=== PATIENT | female | born 1985 | race American Indian/Alaskan Native ===

== ENCOUNTER 2018-10-17 07:08 | Day surgery (SDC) | payer OTHER, MEDICAID ==
[~2018-10-17 07:08] MED LIST: ANCEF/STERILE WATER 2 GM/20 ML 2 GM/20 ML SYRINGE IV NR; NACL BACTERIOSTATIC INFILTRATI ONE
[2018-10-17] MEDS ORDERED: MARCAINE 0.5% INFILTRATI ONE (07:18)
[2018-10-17] MEDS ORDERED: XYLOCAINE 1% 20 mL ONE ×2 (07:18→08:06)
[2018-10-17] MEDS ORDERED: ZEMURON IV ONE (07:21)
[2018-10-17] MEDS ORDERED: SUBLIMAZE ONE ×2 (07:21→08:06)
[2018-10-17] MEDS ORDERED: QUELICIN ONE (07:21)
[2018-10-17] MEDS ORDERED: ZOFRAN ONE (07:21)
[2018-10-17] MEDS ORDERED: DIPRIVAN 10 MG/ML IV ONE (07:22)
[2018-10-17] MEDS ORDERED: NEURONTIN ONE (07:50)
[2018-10-17] MEDS ORDERED: LACTATED RINGERS 1,000 ML IV SCH (08:00)
[2018-10-17] MEDS ORDERED: NEURONTIN PO NR (08:00)
--- NOTE | 2018-10-17 08:00 | Anesthesia Day of Surgery ---
Anesthesia Day of Surgery - Day of Surgery Patient Examined: Yes Patient H&P Reviewed: Yes Patient is NPO: Yes Beta Blockers: No
--- NOTE | 2018-10-17 08:00 | Anesthesia Consultation ---
Anesthesia Consult and Med Hx Date of service: 10/17/18 - Airway Anesthetic Teeth Evaluation: Good ROM Head & Neck: Adequate Mental/Hyoid Distance: Adequate Mallampati Class: Class II Intubation Access Assessment: Probably Good - Pulmonary Exam CTA: Yes - Cardiac Exam Cardiac Exam: No Murmur - Pre-Operative Health Status ASA Pre-Surgery Classification: ASA2 Proposed Anesthetic Plan: General - Pulmonary Hx Smoking: Yes (STOPPED X 3 YRS) Hx Respiratory Symptoms: No SOB: No Hx Sleep Apnea: Yes (DX SLEEP APNEA , NO CPAP USE.) - Cardiovascular System Hx Hypertension: No Hx Coronary Artery Disease: No Hx Heart Attack/AMI: No - Central Nervous System Hx Seizures: No CVA: No Hx Psychiatric Problems: No - Gastrointestinal Hx Gastroesophageal Reflux Disease: Yes (mild, controlled) - Endocrine Hx Renal Disease: No Hx End Stage Renal Disease: No Hx Insulin Dependent Diabetes: No Hx Non-Insulin Dependent Diabetes: No Hx Hypothyroidism: No - Hematic Hx Anemia: Yes Hx Sickle Cell Disease: No - Other Systems Hx Alcohol Use: Yes (occas) Hx Substance Use: Yes (OCC MARIJUANA) Hx Cancer: No
[2018-10-17] MEDS ORDERED: VERSED ONE ×2 (08:05→11:04)
[2018-10-17] MEDS ORDERED: MARCAINE-EPI 0.5%-1:200,000 INFILTRATI ONE (08:07)
[2018-10-17] MEDS ORDERED: WATER FOR IRRIG STERILE IR ONE (09:51)
[2018-10-17] MEDS ORDERED: NACL 0.9% IR ONE (09:51)
--- NOTE | 2018-10-17 10:50 | Short Stay Summary ---
Short Stay Documentation Date of service: 10/17/18 - History Principal diagnosis: umbilical hernia H&P: obtained from office - Allergies and Medications Current Medications: Allergies adhesive Adverse Reaction (Verified 10/11/18 15:25) Rash , ITCHING Home Medications Medication Instructions Recorded Confirmed Last Taken Type No Known Home Medications [No 05/14/18 10/11/18 Unknown History Reported Home Medications] Active Medications Celecoxib (Celebrex) 200 mg PO PREOP NR Stop: 10/17/18 12:00 Last Admin: 10/17/18 08:00 Dose: 200 mg Documented by: Lactated Ringer's (Lactated Ringers) 1,000 mls @ 100 mls/hr IV DIRECT SERVANDO Last Admin: 10/17/18 08:00 Dose: 100 mls/hr Documented by: - Brief post op/procedure progress note Date of procedure: 10/17/18 Pre-op diagnosis: umbilical hernia Post-op diagnosis: same Procedure: robotic assisted umbilical hernia repair with mesh Anesthesia: GETA, other (ENMA block) Findings: 1.5 cm hernia defect with incarcerated omentum and preperitoneal fat Surgeon: ALFA MARQUEZ Hardening Machine Operator Helper: MADELIN CLARKE Estimated blood loss: minimal Pathology: none Condition: stable - Hospital course Hospital course: Pt observed in PACU and discharged to home in stable condition when criteria met - Disposition Condition at discharge: Good Disposition: DC-01 TO HOME OR SELFCARE Short Stay Discharge Plan Activity: other Diet: regular Wound: open to air Additional Instructions: SEE PRINTED DISCHARGE INSTRUCTIONS Follow up with: ROB QUEEN MD [Primary Care Provider] - 7 Days ALFA MARQUEZ DO [Staff Physician] - 14 Days Prescriptions: Ibuprofen [Motrin 800 MG tab] 800 mg PO Q8HR #30 tablet oxyCODONE /ACETAMINOPHEN [Percocet 5/325] 1 tab PO Q4HR PRN #20 tab PRN Reason: pain, severe
[2018-10-17] MEDS ORDERED: NEO SYNEPHRINE/NS Syringe(OR USE) IV ONE (10:57)
[2018-10-17] MEDS ORDERED: DILAUDID ONE (11:06)
[2018-10-17] MEDS ORDERED: PERCOCET 5/325 PO PRN (11:39)
[2018-10-17 12:21] VITALS: BP 132/58
--- NOTE | 2018-10-19 16:34 | Operative Report ---
PREOPERATIVE DIAGNOSIS: Umbilical hernia. POSTOPERATIVE DIAGNOSIS: Umbilical hernia. PROCEDURE: Robotic-assisted umbilical hernia repair with mesh. ANESTHESIA: General endotracheal anesthesia, TAP block. FINDINGS: A 1.5 cm hernia defect with incarcerated omentum and preperitoneal fat. SURGEON: Clary Corbett DO. SUPERVISOR LABOR GANG: Opal Taylor MD ESTIMATED BLOOD LOSS: Minimal. PATHOLOGY: None. CONDITION DISPOSITION: The patient is stable to PACU. HISTORY OF PRESENT ILLNESS AND INDICATION: The patient is a 32-year-old female who presented to the clinic with complaints of a bulge at her umbilicus. She complained of pain in this area and she was found to have an umbilical hernia. The umbilical hernia was partially reducible and contained fat. The repair was recommended. All risks, benefits and alternatives to surgery were discussed with the patient including robotic versus open repair. All questions were answered and consent obtained. PROCEDURE IN DETAIL: The patient was identified in the preoperative area and taken back to the operating room and placed on the operating table in supine position. After anesthesia was induced, a Azul catheter was sterilely placed by circulating nurse. The abdomen was prepped and draped in the usual sterile fashion. A timeout was performed. A carina incision was made in the left upper quadrant at Green's point. Through this, a Veress needle was inserted. The Veress needle positioning was confirmed using a saline drop test. The abdomen was insufflated to 15 mmHg. An incision was made in the right upper quadrant through which a 5 mm Optiview trocar was then inserted. The abdomen was inspected and there was no underlying injury to any of the abdominal structures and the Veress needle was identified and removed. An additional 12 mm balloon trocar was placed in the right lateral abdomen and an 8 mm robotic trocar in the right lower abdomen. The 5 mm right upper quadrant trocar was replaced with an 8 mm robotic trocar under direct visualization. The hernia was visualized and contained omentum. The robot was then docked with a fenestrated bipolar grasper placed in arm #2 and a monopolar scissor in arm #1. The surgeon was then moved to the console. The omentum was removed from the hernia and then I proceeded to create a preperitoneal flap. The peritoneum was scored to the right of the hernia defect and a preperitoneal flap was created using electrocautery in an avascular plane. The peritoneum was carefully from the posterior fascia on either side of the hernia and then the hernia was reduced. There was a large amount of preperitoneal fat contained in the hernia, which was carefully reduced. The hernia sac was also reduced. The hernia defect measured 1.5 cm. I carried the flap towards the left side in order to accommodate mesh placement. Once this was done, the pocket was checked for hemostasis, which was carefully ensured. The hernia defect was then closed using 0 V-Loc suture in a running fashion. An 8 cm round, flat Bard mesh was then chosen to repair the hernia. This was placed into the abdomen along with additional suture material. It was positioned at the center of the hernia defect and affixed in 4 quadrants using 2-0 Vicryl interrupted sutures. There was adequate coverage of the hernia defect with the appropriate overlap. The peritoneum was then reapproximated using 3-0 V-Loc continuous suture until all of the mesh was completely covered. No mesh was exposed to the abdominal organs. The robot was then undocked and the surgeon scrubbed back in. The remainder of the procedure was performed laparoscopically. The suture and sharps were removed from the abdomen under direct visualization. The 12 mm port was removed and the fascia closed with an interrupted 0 Vicryl suture using Zay-Lydia device. The abdomen was then desufflated and the remaining ports were removed. The skin was closed with 4-0 Monocryl subcuticular stitches and skin glue. A 4 x 4 gauze was placed in the umbilicus and covered with a Tegaderm dressing. At the end of the case, all sponge, instrument, sharp counts were correct x 2. The Azul catheter was removed. The patient was awoken from anesthesia and extubated. She was taken to the PACU in stable condition. JOB# [id number] JAMAL/BENJAMIN JENSEN
== END 2018-10-17 07:09 | disposition home or self-care (01) ==
LOC: OR 07:08
PROVIDERS: ATTEND Surgery
DX: K42.0 Umbilical hernia with obstruction, without gangrene (principal); G47.30 Sleep apnea, unspecified; K21.9 Gastro-esophageal reflux disease without esophagitis; Z79.899 Other long term (current) drug therapy; Z87.891 Personal history of nicotine dependence; Z98.51 Tubal ligation status; Z87.440 Personal history of urinary (tract) infections; Z72.89 Other problems related to lifestyle; Z98.890 Other specified postprocedural states; Z86.2 Personal history of diseases of the blood and blood-forming organs and certain disorders involving the immune mechanism; Z88.8 Allergy status to other drugs, medicaments and biological substances
CPT/HCPCS: 49653; 64488; 81025; C1781; J0330; J0690; J1170; J2250; J2370; J2405; J2704; J3010; J7120; S2900; 64450

== ENCOUNTER 2018-11-26 06:02 | Day surgery (SDC) | payer MEDICAID ==
[2018-11-26] MEDS ORDERED: LACTATED RINGERS 1,000 ML IV SCH (07:00)
[2018-11-26] MEDS ORDERED: ZOFRAN IV PRN (07:15)
[2018-11-26] MEDS ORDERED: SUBLIMAZE IV PRN (07:15)
--- NOTE | 2018-11-26 07:16 | Anesthesia Day of Surgery ---
Anesthesia Day of Surgery - Day of Surgery Patient Examined: Yes Patient H&P Reviewed: Yes Patient is NPO: Yes
--- NOTE | 2018-11-26 07:19 | Anesthesia Consultation ---
Anesthesia Consult and Med Hx Date of service: 11/26/18 - Airway Anesthetic Teeth Evaluation: Good ROM Head & Neck: Adequate Mental/Hyoid Distance: Adequate Mallampati Class: Class II Intubation Access Assessment: Probably Good - Pre-Operative Health Status ASA Pre-Surgery Classification: ASA1 Proposed Anesthetic Plan: General, MAC (MAC; GA if needed) - Pulmonary Hx Smoking: Yes (STOPPED X 3 YRS) Hx Respiratory Symptoms: No SOB: No Hx Sleep Apnea: No - Cardiovascular System Hx Hypertension: No Hx Coronary Artery Disease: No Hx Heart Attack/AMI: No - Central Nervous System Hx Seizures: No CVA: No Hx Psychiatric Problems: No - Gastrointestinal Hx Gastroesophageal Reflux Disease: Yes (mild, controlled) - Endocrine Hx Renal Disease: No Hx End Stage Renal Disease: No Hx Insulin Dependent Diabetes: No Hx Non-Insulin Dependent Diabetes: No Hx Hypothyroidism: No - Hematic Hx Anemia: Yes Hx Sickle Cell Disease: No - Other Systems Hx Alcohol Use: Yes (occas) Hx Substance Use: Yes (OCC MARIJUANA) Hx Cancer: No
[2018-11-26] MEDS ORDERED: XYLOCAINE 1% 20 mL ONE (07:23)
[2018-11-26] MEDS ORDERED: MARCAINE 0.25% INFILTRATI ONE ×2 (07:23→07:57)
[2018-11-26] MEDS ORDERED: ANCEF/STERILE WATER 2 GM/20 ML 2 GM/20 ML SYRINGE IV SCH (07:30)
[2018-11-26] MEDS ORDERED: VERSED ONE (07:35)
[2018-11-26] MEDS ORDERED: SUBLIMAZE ONE (07:38)
[2018-11-26] MEDS ORDERED: DIPRIVAN 10 MG/ML IV ONE ×3 (07:38→08:31)
[2018-11-26] MEDS ORDERED: XYLOCAINE MPF 2% ONE (07:38)
[2018-11-26] MEDS ORDERED: NACL 0.9% IR ONE (07:57)
[2018-11-26] MEDS ORDERED: XYLOCAINE 1% 20 mL INFILTRATI ONE (07:57)
[2018-11-26] MEDS ORDERED: ZOFRAN ONE (08:00)
--- NOTE | 2018-11-26 08:42 | Short Stay Summary ---
Short Stay Documentation Date of service: 11/26/18 - History Principal diagnosis: chest wall cyst H&P: obtained from office - Allergies and Medications Current Medications: Allergies adhesive Allergy (Verified 11/25/18 11:45) Rash , ITCHING Home Medications Medication Instructions Recorded Confirmed Last Taken Type Ibuprofen [Motrin 800 MG tab] 800 mg PO Q8HR #30 tablet 10/17/18 11/26/18 11/12/18 15:00 Rx oxyCODONE /ACETAMINOPHEN [Percocet 1 tab PO Q4HR PRN #20 tab 10/17/18 11/26/18 11/12/18 15:00 Rx 5/325] Active Medications Fentanyl (Sublimaze) 50 mcg IV Q5MIN PRN PRN Reason: Pain , Severe (7-10) Stop: 11/26/18 20:00 Cefazolin Sodium (Ancef/Sterile Water 2 Gm/20 Ml) 2 gm in 20 mls @ 40 mls/hr IV PREOP SERVANDO; Protocol Stop: 11/26/18 23:00 Lactated Ringer's (Lactated Ringers) 1,000 mls @ 75 mls/hr IV DIRECT SERVANDO Last Admin: 11/26/18 07:12 Dose: 75 mls/hr Documented by: Ondansetron HCl (Zofran) 4 mg IV ONCE PRN PRN Reason: Nausea And Vomiting - Brief post op/procedure progress note Date of procedure: 11/26/18 Pre-op diagnosis: chest wall cyst Post-op diagnosis: same Procedure: excision of chest wall cyst Anesthesia: MAC, local Findings: 0.5 cm cyst with ceabllos contents along with scar tissue Surgeon: ALFA MARQUEZ Estimated blood loss: minimal Pathology: list (chest wall cyst) Specimen disposition: to lab Condition: stable - Hospital course Hospital course: Pt observed in PACU and discharged to home in stable condition when criteria met - Disposition Condition at discharge: Good Disposition: DC-01 TO HOME OR SELFCARE Short Stay Discharge Plan Activity: no restrictions Diet: regular Wound: per your surgeon's advice, other (SEE PRINTED DISCHARGE INSTRUCTIONS) Follow up with: ROB QUEEN MD [Primary Care Provider] - 7 Days ALFA MARQUEZ DO [Staff Physician] - 10 Days
[2018-11-26 09:30] VITALS: BP 124/85
--- NOTE | 2018-11-26 16:16 | Operative Report ---
PREOPERATIVE DIAGNOSIS: Chest wall cyst. POSTOPERATIVE DIAGNOSIS: Chest wall cyst. PROCEDURE: Excision of chest wall cyst. ANESTHESIA: MAC local. FINDINGS: 0.5 cm cyst with correa contents along with scar tissue, total excised specimen measuring 1.5 cm. SURGEON: Clary Corbett DO ESTIMATED BLOOD LOSS: Minimal. PATHOLOGY: Chest wall cyst. SPECIMEN DISPOSITION: To lab. CONDITION DISPOSITION: The patient is stable to PACU. HISTORY OF PRESENT ILLNESS AND INDICATION: The patient is a 32-year-old female who presented to the office for evaluation of the chest wall wound. She stated in the past, there was an infected cyst in this area, which was incised; however, the opening never healed. Since then, she has been dealing with a wound in her chest wall. Upon examination, the patient did have retained cyst contents and a 0.5 cm opening in her chest wall. It was therefore recommended for the patient to undergo complete excision of the chest wall cyst as well. All risks, benefits and alternatives to surgery were discussed with the patient and consent obtained. PROCEDURE IN DETAIL: The patient was identified in the preoperative area and taken back to the operating room and placed on the operating table in supine position. After anesthesia was induced, the chest was prepped and draped in the usual sterile fashion. Timeout was performed. In the patient's mid chest, there was a small opening. Local anesthetic was infiltrated into the skin and subcutaneous tissue at the intended incision site. An elliptical incision was made around the open wound in order to accommodate it with the incision and dissection carried down through skin and subcutaneous tissue using electrocautery. The cyst was encountered and dissected free from the surrounding tissue using hemostat and electrocautery. There was associated scar tissue, which was also excised. Once healthy subcutaneous tissue was encountered circumferentially, the cyst and scar tissue were dissected off the wound bed using electrocautery. This was passed off table as specimen. Wound was irrigated with saline and hemostasis ensured with a combination of pressure and electrocautery. The wound was then closed by approximating the skin using interrupted 4-0 nylon sutures. A 2 x 2 gauze and Tegaderm were applied over top of the wound. At the end of the case, all sponge, instrument, sharp counts were correct x 2. The patient was awoken from anesthesia and taken to PACU in stable condition. JOB# [id number] JAMAL/BENJAMIN
--- NOTE | 2018-11-27 09:52 | Post Anesthesia Evaluation ---
- Post Anesthesia Evaluation Patient Participated: Yes Airway Patent: Yes Stable Respiratory Function: Yes Nausea/Vomiting: No Temp > 96.8F: Yes Pain Manageable: Yes Adequeate Hydration: Yes Anesthesia Complications: No Block Receding Appropriately: Not Applicable Patient on Ventilator: No
== END 2018-11-26 09:45 | disposition home or self-care (01) ==
LOC: OR 06:02
PROVIDERS: ATTEND Surgery
DX: D23.5 Other benign neoplasm of skin of trunk (principal); K21.9 Gastro-esophageal reflux disease without esophagitis; F17.210 Nicotine dependence, cigarettes, uncomplicated; Z79.899 Other long term (current) drug therapy; Z88.8 Allergy status to other drugs, medicaments and biological substances; Z98.51 Tubal ligation status; Z87.440 Personal history of urinary (tract) infections; Z72.89 Other problems related to lifestyle; Z98.890 Other specified postprocedural states; Z86.2 Personal history of diseases of the blood and blood-forming organs and certain disorders involving the immune mechanism
CPT/HCPCS: 11402; 81025; 88304; J0690; J2250; J2405; J2704; J3010; J7120

== ENCOUNTER 2020-06-24 13:04 | Outpatient (CLI) | payer MEDICAID | END 2020-06-24 13:05 | disposition home or self-care (01) | LOC: LABHHL 13:04 | PROVIDERS: ATTEND Surgery | DX: L91.8 Other hypertrophic disorders of the skin (principal) | CPT/HCPCS: 88304 ==